=== PATIENT | male | born 1985 | race Caucasian/White ===

== ENCOUNTER → 2021-02-03 | Outpatient (CLI) | payer OTHER ==
--- NOTE | 2021-02-03 12:59 | RAD ---
MRI STUDY OF THE RIGHT FOOT WITHOUT CONTRAST Clinical indications: Right great toe injury. Decreased range of motion. COMPARISON: None available. TECHNIQUE: Noncontrast MRI sequences of the right forefoot were performed in all 3 planes. FINDINGS: There is a nondisplaced sagittal fracture line of the distal aspect of the first proximal p halanx. No articular surface offset is evident. No subluxation or dislocation of the first interphala ngeal joint is seen. There is a small joint effusion of the first metatarsal phalangeal joint. There is mild degenerative spurring of this joint compartment. The flexor and extensor tendons are intact w ithout tenosynovitis. IMPRESSION: Nondisplaced fracture of the distal aspect of the first proximal phalanx. Electronically signed by: Robbi Mccurdy MD (02/03/2021 12:56 PM) [id number]
== END ==
LOC: MRI 09:42
PROVIDERS: ATTEND Family Medicine
DX: S93.51 Sprain of interphalangeal joint of toe (principal); S92.911A Unspecified fracture of right toe(s), initial encounter for closed fracture; M77.51 Other enthesopathy of right foot and ankle; M25.474 Effusion, right foot; X58.XXXA Exposure to other specified factors, initial encounter; Y93.89 Activity, other specified; Y92.89 Other specified places as the place of occurrence of the external cause; Y99.8 Other external cause status
CPT/HCPCS: 73718